=== PATIENT | female | born 1990 | race Caucasian/White ===

== ENCOUNTER 2019-07-18 14:28 | Outpatient (CLI) | payer MEDICAID, SELFPAY ==
[2019-07-19 09:52] LABS: HIV-1/2 Ag & Ab Screen Negative (Negative); Hepatitis B Surface Ag Negative (Negative)
[2019-07-19 10:09] LABS: Hepatitis C Ab w Rflx HCV PCR Negative (Negative)
[2019-07-20 10:12] LABS: Syphilis Total Ab w/Reflex Nonreactive (Nonreactive)
== END 2019-07-18 14:48 ==
PROVIDERS: Visit Provider Advanced Practice Midwife
DX: Z11.3 Encounter for screening for infections with a predominantly sexual mode of transmission (principal); Z11.4 Encounter for screening for human immunodeficiency virus [HIV]; Z11.59 Encounter for screening for other viral diseases
CPT/HCPCS: 36415; 86803; 87340; 87389; 86780

== ENCOUNTER 2019-07-18 17:21 | Outpatient (REF) | payer MEDICAID, SELFPAY ==
--- NOTE | 2019-07-18 14:00 | PAPFT_PTH ---
PATIENT: GINO JOHNSON LOC: [facility] U#:[id number] AGE/SX: 28/F ROOM: RE07/18/[address]: AMIRAH Parish : 1990 BED: DIS: 07/18/2019 SPEC #: [id number] RECD: 07/18/19 17:41 STATUS: KVNG RELois #: [id number] JANN: 07/18/19 14:[address]: Yudi Swift DEPT: [facility] Cytology RECD BY: Sallie Murillo ENTERED: 07/18/19 17:41 SP TYPE: PAPFT OT DR: Farnaz Local Tissues: 1 - CX/ENDOCX FOR PAP SMEARS Procedures: PAP THIN PREP/[facility] Screening HPV DNA PROBE Comments: [id number]
[2019-07-19 12:53] LABS: Chlamydia Result Negative (Negative); GC Result Negative (Negative)
== END 2019-07-18 17:41 ==
LOC: LBN 17:21
PROVIDERS: Visit Provider Nurse Practitioner Family
DX: R30.0 Dysuria (principal); Z11.3 Encounter for screening for infections with a predominantly sexual mode of transmission; Z12.4 Encounter for screening for malignant neoplasm of cervix
CPT/HCPCS: 87077; 87491; 87591; 88142; 87086; 87624

== ENCOUNTER 2019-08-11 17:11 | Outpatient (REF) | payer MEDICAID, SELFPAY ==
--- NOTE | 2019-08-11 16:00 | ENDO_PTH ---
PATIENT: GINO JOHNSON LOC: [facility] U#:[id number] AGE/SX: 28/F ROOM: RE08/11/[address]: Sandro Prince MD : 1990 BED: DIS: 08/11/2019 SPEC #: [id number] RECD: 08/11/19 17:28 STATUS: KVNG REQ #: [id number] JANN: 08/11/19 16:[address]: Sandro Prince DEPT: Surgical Specimen RECD BY: Sallie Murillo ENTERED: 08/11/19 17:28 SP TYPE: Endo OTHR DR: No Local Tissues: 1 - ENDOCERVICAL BX/CURRETTE 2 - CERVICAL BIOPSY Procedures: GROSS AND MICRO LEVEL 4 Comments: [id number]
== END 2019-08-11 17:31 ==
LOC: LBN 17:11
PROVIDERS: Visit Provider Obstetrics & Gynecology
DX: N87.9 Dysplasia of cervix uteri, unspecified (principal); N88.8 Other specified noninflammatory disorders of cervix uteri; R87.618 Other abnormal cytological findings on specimens from cervix uteri
CPT/HCPCS: 88305

== ENCOUNTER 2019-08-11 17:35 | Outpatient (REF) | payer MEDICAID, SELFPAY | END 2019-08-11 17:55 | LOC: LBN 17:35 | PROVIDERS: Visit Provider Obstetrics & Gynecology | DX: N89.8 Other specified noninflammatory disorders of vagina; R39.89 Other symptoms and signs involving the genitourinary system | CPT/HCPCS: 87086; 87480; 87510; 87660 ==

== ENCOUNTER 2020-01-20 12:16 | Outpatient (CLI) | payer MEDICAID, SELFPAY ==
[2020-01-23 14:04] LABS: Chlamydia Result Negative (Negative); GC Result Negative (Negative)
[2020-01-23 17:42] LABS: SARS-CoV-2 RNA Undetected (Undetected)
== END 2020-01-20 12:36 ==
PROVIDERS: Nurse Practitioner Family; Visit Provider Student in an Organized Health Care Education/Training Program
DX: Z11.3 Encounter for screening for infections with a predominantly sexual mode of transmission (principal)
CPT/HCPCS: 87491; 87591; U0003